=== PATIENT | male | born 1970 | race Caucasian/White ===

== ENCOUNTER 2018-07-08 01:20 | Outpatient (CLI) | payer OTHER, SELFPAY ==
--- NOTE | 2018-07-08 14:28 | DI.MRI_ITS ---
SYMPTOMS/DIAGNOSIS: CERVICAL RADICULOPATHY, M54.13, S/P LIFTING INJURY MRI OF THE CERVICAL SPINE: Routine examination was performed. Comparison is with x-rays from an outside institution. There is normal signal in the spinal cord. No evidence of tonsillar ectopia is seen. At C7-T1, there is no focal disc herniation, central spinal canal or neural foraminal stenosis. At C6-C7, there are mild hypertrophic changes of the facets. The findings do result in mild narrowing of the left neural foramen. No significant right neural foraminal stenosis or central spinal canal stenosis is seen. At C5-C6, there is a small to moderate-sized central disc herniation. It effaces the anterior subarachnoid space, but there is CSF surrounding the cord. No significant central spinal canal stenosis is seen. There are hypertrophic changes of the facets bilaterally, resulting in mild bilateral neural foraminal stenosis. At C4-C5, there are hypertrophic changes of the facets, resulting in mild to moderate left and mild right neural foraminal stenosis. There is prominence of the osteophyte-disc complex, resulting in mild narrowing of the central spinal canal. At C3-C4, there are hypertrophic changes of the left facet joints. There is mild narrowing of the left neural foramen. Mild prominence of the osteophyte- disc complex is seen, resulting in mild narrowing of the central spinal canal. C2-C3 shows no focal disc herniation, central spinal canal or neural foraminal stenosis. Marrow signal is within normal limits. IMPRESSION: 1. Multilevel degenerative changes in the cervical spine, resulting in multilevel central spinal canal and neural foraminal stenosis as described above. 2. Small to moderate-sized central disc herniation at C5-C6 as described above.
== END 2018-07-08 01:40 ==
PROVIDERS: Visit Provider Chiropractor
DX: M54.13 Radiculopathy, cervicothoracic region (principal); M50.222 Other cervical disc displacement at C5-C6 level; M50.121 Cervical disc disorder at C4-C5 level with radiculopathy
CPT/HCPCS: 72141

== ENCOUNTER 2018-08-20 16:23 | Outpatient (CLI) | payer OTHER, SELFPAY ==
[2018-08-20 16:47] LABS: HCT 45.5 % (40.0-50.0); HGB 15.4 g/dL (13.5-17.5); Mean Corp. HGB Concentration 33.8 g/dL (32.0-36.0); Mean Corpuscular Hemoglobin 31.7 pg (27.0-33.0); Mean Corpuscular Volume 93.6 fL (80-95); Mean Platelet Volume 9.9 fL (8.0-11.0); Platelet Count 366 x1000/uL (130-400); RBC 4.86 m/cumm (4.50-6.00); RBC Distribution Width 12.8 % (11.8-14.1); White Blood Cell Count 10.69 k/cumm (4.4-10.8)
[2018-08-20 17:42] LABS: Anion Gap 8.4 mmol/L (3-11); BUN 13 mg/dL (7-18); CO2 30.6 mmol/L (21.0-32.0); CREATININE 1.22 mg/dL (0.70-1.30); Calcium 9.5 mg/dL (8.5-10.1); Chloride 103 mmol/L (98-107); Glucose 92 mg/dL (70-100); Potassium 4.1 mmol/L (3.5-5.1); Sodium 142 mmol/L (136-145)
== END 2018-08-20 16:43 ==
PROVIDERS: Visit Provider Neurological Surgery
DX: Z01.812 Encounter for preprocedural laboratory examination (principal); R69 Illness, unspecified
CPT/HCPCS: 36415; 80048; 85027

== ENCOUNTER 2024-09-09 16:53 | Outpatient (CLI) | payer OTHER, SELFPAY ==
--- NOTE | 2024-09-09 15:40 | DI.RAD_ITS ---
Exam(s) XR CHEST 2V PA LATERAL EXAM: XR CHEST 2V PA LATERAL CLINICAL HISTORY: R05.9 cough TECHNIQUE: 2D digital imaging was performed of the chest. Two images were obtained. PA and lateral views were obtained. COMPARISON: CR LEFT RIBS TO INCLUDE CXR from 03/23/2014 FINDINGS: MEDIASTINUM: Normal. HEART: Normal. PULMONARY VASCULATURE: Normal. LUNGS: There is a right lower lobe infiltrate. The left lung is clear. PLEURAL SPACE: No pleural effusion or pneumothorax. BONE:Within normal limits for the patient's age. There are old healed left rib fractures. OTHER FINDINGS:Normal. IMPRESSION: Right lower lobe pneumonia. DATA REPOSITORY: RADIATION DOSE DELIVERED:
== END 2024-09-09 17:13 ==
LOC: DI 16:55
PROVIDERS: Visit Provider Nurse Practitioner Family
DX: J18.9 Pneumonia, unspecified organism (principal)
CPT/HCPCS: 71046

== ENCOUNTER 2024-09-23 15:05 | Outpatient (REF) | payer OTHER, SELFPAY ==
[2024-09-23 14:42] LABS: Abs Immature Grans 0.31 10^3/uL (0.0-0.06); Absolute Lymphocyte Count 0.97 10^3/uL (1.2-3.4); Basophils % 0.2 %; Eosinophils % 0.1 %; HCT 43.4 % (40.0-50.0); Immature Grans % 1.2 %; Lymphocytes % 3.8 %; MCH 30.2 pg (27.0-33.0); MCHC 32.3 % (32.0-36.0); MCV 94 fL (80-95); MPV 9.7 fL (8.0-11.0); Monocytes % 6.5 %; Platelet Count 509 10^3/uL (130-400); RBC 4.64 10^6/uL (4.36-5.78); RDW 12.4 % (11.8-14.1); RDW-SD 42.5 fL
[2024-09-23 14:55] LABS: ALT 68 U/L (16-63); AST 56 U/L (15-37); Albumin 2.7 g/dL (3.4-5.0); Alkaline Phosphatase 185 U/L (46-116); Anion Gap 12.3 mmol/L (3-11); BUN 8 mg/dL (7-18); Bilirubin, Total 0.79 mg/dL (0.2-1.0); CO2 26.7 mmol/L (21.0-32.0); CREATININE 0.9 mg/dL (0.70-1.30); Calcium 8.8 mg/dL (8.5-10.1); Chloride 96 mmol/L (98-107); Estimated GFR 100.86 (mL/min/1.73m2); Glucose 101 mg/dL (74-106); Potassium 4.4 mmol/L (3.5-5.1); Sodium 135 mmol/L (136-145); Total Protein 6.6 g/dL (6.4-8.2)
[2024-09-23 15:00] LABS: Absolute Basophil Count 0.05 10^3/uL (0.0-0.2); Absolute Eosinophil Count 0.03 10^3/uL (0.0-0.7); Absolute Monocyte Count 1.65 10^3/uL (0.1-0.8); Absolute Neutrophil Count 22.43 10^3/uL (1.2-6.7); Neutrophils % 88.2 %
[2024-09-23 15:09] LABS: WBC 25.43 10^3/uL (4.4-10.8)
[2024-09-23 15:55] LABS: COVID-19 PCR Negative (Negative); Influenza A PCR Negative (Negative); Influenza B PCR Negative (Negative); RSV PCR Negative (Negative)
[2024-09-23 15:56] LABS: Source Nasopharynx
== END 2024-09-23 15:06 | disposition home or self-care (01) ==
LOC: LBN 15:05
PROVIDERS: Visit Provider Nurse Practitioner Family
DX: R50.9 Fever, unspecified (principal)
CPT/HCPCS: 80053; 87637; 85025

== ENCOUNTER 2024-09-23 15:53 | Emergency (ER) | payer OTHER, SELFPAY ==
[2024-09-23 16:04] VITALS: BP 144/87; PULSE 112; RESP 20; TEMP 37; O2SAT 96
[2024-09-23 16:07] VITALS: BP 144/87; PULSE 112; RESP 20; TEMP 37; O2SAT 96
--- NOTE | 2024-09-23 16:15 | DI.RAD_ITS ---
Exam(s) XR CHEST 2V PA LATERAL EXAM: XR CHEST 2V PA LATERAL CLINICAL HISTORY: cough, WBC TECHNIQUE: 2D digital imaging was performed. Two views. COMPARISON: CR XR CHEST 2V PA LATERAL from 09/09/2024 FINDINGS: HEART: Normal size. Aorta: Not dilated. PULMONARY VASCULATURE: Normal. MEDIASTINUM: Unremarkable. LUNGS: Some interval worsening of the previously noted right lower lobe infiltrate, with increasing c onsolidation. The left lung remains clear. PLEURAL SPACE: No pleural effusion or pneumothorax. BONE:Unremarkable for age. SOFT TISSUES: Unremarkable. IMPRESSION: Are right lower lobe pneumonia. DATA REPOSITORY: RADIATION DOSE DELIVERED:
[2024-09-23 17:17] LABS: Lactate 1.3 mmol/L (<or=2.0)
[2024-09-23 17:25] LABS: BE (Venous) 2 mmol/L (-2-3); HCO3 (Venous) 26 mmol/L (23-28); O2 Sat (Venous) 71 %; TCO2 (Venous) 23 mmol/L (24-29); pCO2 (Venous) 38 mmHg (41-51); pH (Venous) 7.45 (7.31-7.41); pO2 (Venous) 36 mmHg
--- NOTE | 2024-09-23 17:30 | ED.GENADUL_ITS ---
Discharge Plan Disposition Patient Disposition: Home Condition: Good Discharge Details Clinical Impression: Community acquired pneumonia Primary Care Provider: Unknown,Unknown ED Provider: Jessica Post Home Meds and New Rx's Prescriptions: New levofloxacin 750 mg tablet 750 mg PO DAILY Qty: 4 0RF No Action ibuprofen 800 mg tablet 800 mg PO TID PRN (Reason: pain) Qty: 42 0RF cyclobenzaprine 10 mg tablet 10 mg PO HS PRN (Reason: muscle spasm) Qty: 10 0RF Discharge Instructions Instructions: Levofloxacin (Systemic), Community-Acquired Pneumonia, Adult (DC) Additional Instructions: Please get reevaluated at walk-in primary care such as [facility] in [place] ([address]) or [facility] ([address]) by the end of the week. Make an appointment to establish care with primary care as discussed. Take the prescription for the full course as provided. Please note that this may have complications such as tendon rupture or nerve problems, so please seek care immediately if you notice any joint weakness, unusual muscle pains, numbness. Stay well-hydrated, drinking plenty of fluids throughout the day. You may use Tylenol 650 mg every 6 hours or ibuprofen 600 mg every 8 hours as needed for fever/chills and generalized discomfort. You may use Mucinex DM or Robitussin DM as needed for cough. Take according to package instructions. Vicks VapoRub may also provide some comfort. Return to emergency care if you develop new chest pains, difficulty breathing, fevers after 48 hours of treatment, if symptoms are worsening rather than getting better, or if you are very worried and need to be rechecked again immediately HPI General Date/Time Provider Initiated Documentation: 09/23/24 15:56 . HPI Narrative: Bandar is a 54 year old male who presents to the emergency department today for evaluation of worsening cough with low-grade fever, body aches, sore throat, and congestion. He reports that he has been sick all winter, but was treated for pneumonia 2 weeks ago. He initially felt better after taking antibiotics, but a couple of days ago he started feeling unwell again; his energy plummeted and his appetite decreased, and he started developing fevers. He denies chest pains or shortness of breath other than when he is coughing. He was advised to present to the emergency department for further evaluation and treatment. Denies tobacco or alcohol use. Denies significant past medical history. Physical exam remarkable for frequent cough, lung sounds diminished throughout. Normal heart sounds, tachycardia noted. Patient alert and oriented, no acute distress. Skin is slightly hot and dry. D/dx includes but is not limited to: Treatment resistant pneumonia, viral illness, obstructive process such as neoplasm, dehydration, electrolyte imbalance. Patient does not meet SIRS criteria at this time. I independently interpreted the following tests: CBC notable for leukocytosis, white cell count 25.4. Thrombocytosis with platelet count 509 also noted. CMP and VBG reassuring, procalcitonin negative. Lactate 1.3. Chest x-ray remarkable for right lower lobe infiltrate, this was remarked by radiologist to be increased since previous. History and presentation today consistent with treatment resistant pneumonia. While in the emergency department, Bandar received IV fluids for mild dehydration and Tylenol for fever/body aches, with resolution of tachycardia. He was able to take p.o. lukas domingo without difficulty. Levaquin given for antibiotic, as patient has failed Augmentin and azithromycin outpatient. Reviewed discharge instructions with patient, including symptomatic management, importance of close follow-up for reassessment, and red flags indicating need for return to emergency care. He voices agreement with plan of care. Related Data Home Medications ?Medication ?Instructions ?Recorded ?Confirmed ibuprofen 800 mg tablet 800 mg PO TID PRN pain #42 tabs 04/11/18 09/23/24 cyclobenzaprine 10 mg tablet 10 mg PO HS PRN muscle spasm #10 04/14/24 09/23/24 tabs levofloxacin 750 mg tablet 750 mg PO DAILY #4 tabs 09/23/24 Previous Rx's ?Medication ?Instructions ?Recorded ibuprofen 800 mg tablet 800 mg PO TID PRN pain #42 tabs 04/11/18 cyclobenzaprine 10 mg tablet 10 mg PO HS PRN muscle spasm #10 04/14/24 tabs levofloxacin 750 mg tablet 750 mg PO DAILY #4 tabs 09/23/24 Allergies Allergy/AdvReac Type Severity Reaction Status Date / Time No Known Allergies Allergy Unverified 09/23/24 16:08 General Stated Complaint: RespSymp ERON: 3 Review of Systems Narrative: See HPI Exam Const General: cooperative, healthy appearing, comfortable, no acute distress, well developed and well groomed Nutritional Appearance: average body habitus Orientation: alert and oriented x3 Resp Effort & Inspection: normal respiratory effort and able to speak in complete sentences Auscultation: clear to auscultation bilaterally and diminished lung sounds Cardio Rate: tachycardic Rhythm: regular rhythm Pulses: radial pulses present Skin General skin exam: no rashes or lesions noted Trauma: no lacerations or abrasions Course Vital Signs Vital signs: Vital Signs Temperature 37.0 C 09/23/24 16:04 Pulse 112 H 09/23/24 16:04 Respiratory Rate 20 09/23/24 16:04 Blood Pressure 144/87 H 09/23/24 16:04 Pulse Oximetry 96 09/23/24 16:04 Temperature 37.0 C 09/23/24 16:07 Pulse 112 H 09/23/24 16:07 Respiratory Rate 20 09/23/24 16:07 Respiratory Effort Normal 09/23/24 17:09 Respiratory Depth Normal 09/23/24 17:09 Blood Pressure 144/87 H 09/23/24 16:07 Blood Pressure Position Sitting 09/23/24 16:07 Pulse Oximetry 96 09/23/24 16:07 Oxygen Delivery Method Room Air 09/23/24 16:07 Oxygen Flow Rate 0 09/23/24 16:07 Lab/Test Results Lab/Test Results: 09/23/24 16:21 Blood Blood Culture - Pending 09/23/24 16:21 Blood Blood Culture - Pending Laboratory Tests Range/Units 09/23/24 17:05 VBG pH (7.31-7.41) 7.45 H VBG pCO2 (41-51) mmHg 38 L VBG pO2 mmHg 36 VBG HCO3 (23-28) mmol/L 26 VBG Total CO2 (24-29) mmol/L 23 L VBG O2 Saturation % 71 VBG Base Excess (-2-3) mmol/L 2 VBG Lactate (<or=2.0) mmol/L 1.3 Medical Decision Making Imaging Data Radiologic Study: Radiologist's impression: Exam(s) XR CHEST 2V PA LATERAL EXAM: XR CHEST 2V PA LATERAL CLINICAL HISTORY: cough, WBC TECHNIQUE: 2D digital imaging was performed. Two views. COMPARISON: CR XR CHEST 2V PA LATERAL from 09/09/2024 FINDINGS: HEART: Normal size. Aorta: Not dilated. PULMONARY VASCULATURE: Normal. MEDIASTINUM: Unremarkable. LUNGS: Some interval worsening of the previously noted right lower lobe infilt rate, with increasing consolidation. The left lung remains clear. PLEURAL SPACE: No pleural effusion or pneumothorax. BONE:Unremarkable for age. SOFT TISSUES: Unremarkable. IMPRESSION: Are right lower lobe pneumonia. Quality:SDOH Health Related Social Needs: No Data to Display PFSH All Active Problems (Updated 09/23/24 @ 19:33 by Jessica Mello) Community acquired pneumonia (Acute) Cervical strain (Acute ~02/2018) Begin PT which has been scheduled for Sunday at 7:45 AM Ibuprofen to be limited to no more than 800 mg tid prn. Add Flexeril 5-10 mg at HS prn. Use heat. Work restrictions per work status form. Medical History (Updated 09/23/24 @ 19:33 by Jessica Mello) Fracture, jaw 23 years ago Neck pain Social History Smoking/Tobacco Use Status: Current every day Tobacco Type: cigarettes Smoking packs per day: 1 Smoking cigarettes per day: 20.0 Smoking risk assessment performed?: Yes Alcohol Intake: current Alcohol Intake frequency: 0-2 drinks per day Alcohol type: beer Drug use: Never Household members: significant other and children Number of Children: 1 current occupation: metal fabriacation, manufacturing Do you feel safe in your relationship?: Yes
[2024-09-23 17:44] LABS: Procalcitonin 0.16 ng/mL
[2024-09-23] MEDS: Acetaminophen 325 MG TAB 650 MG PO (17:46)
[2024-09-23 17:51] LABS: COVID-19 PCR Negative (Negative); Influenza A PCR Negative (Negative); Influenza B PCR Negative (Negative); RSV PCR Negative (Negative)
[2024-09-23 17:52] LABS: Source Nasopharynx
--- NOTE | 2024-09-23 18:15 | RT.EKG_ITS ---
APPROVED REPORT Exam: Resting ECG Reason for Exam: karen QT Patient Location: E HR:114 bpm ECG Measurements Heart Rate 114 AXIS SD 138 P 55 QRSd 85 QRS 65 QT 304 T 29 QTc 418 Conclusion Sinus tachycardia...rate> 99
[2024-09-23 18:17] VITALS: PULSE 138; RESP 20; O2SAT 96
[2024-09-23] MEDS: levoFLOXacin 500 MG, levoFLOXacin 250 MG 750 MG PO (18:47)
[2024-09-23] MEDS: Normal Saline 1,000 ML 1000 ML IV (18:48)
[2024-09-23 19:40] VITALS: BP 109/69; PULSE 94; RESP 18; O2SAT 98
[2024-09-23 19:51] VITALS: BP 109/69; PULSE 94; RESP 18; O2SAT 98
[2024-09-23 22:00] LABS: Lab Add On Test DONE
== END 2024-09-23 19:59 | disposition home or self-care (01) ==
PROVIDERS: Emergency Provider Nurse Practitioner Family
DX: J18.9 Pneumonia, unspecified organism (principal)
CPT/HCPCS: 82805; 84145; 87040; 87637; 93005; 96360; 99284; 71046; 83605; 93010; 99283

== ENCOUNTER 2024-10-17 10:02 | Outpatient (CLI) | payer OTHER, SELFPAY ==
[2024-10-17 10:24] LABS: ALT 81 U/L (16-63); AST 40 U/L (15-37); Albumin 2.3 g/dL (3.4-5.0); Alkaline Phosphatase 133 U/L (46-116); Anion Gap 7.9 mmol/L (3-11); BUN 7 mg/dL (7-18); Bilirubin, Total 0.4 mg/dL (0.2-1.0); CO2 29.1 mmol/L (21.0-32.0); CREATININE 0.8 mg/dL (0.70-1.30); Calcium 9.1 mg/dL (8.5-10.1); Chloride 103 mmol/L (98-107); Estimated GFR 104.51 (mL/min/1.73m2); Glucose 107 mg/dL (74-106); Potassium 4.3 mmol/L (3.5-5.1); Sodium 140 mmol/L (136-145); Total Protein 7.2 g/dL (6.4-8.2)
== END 2024-10-17 10:03 | disposition home or self-care (01) ==
LOC: LBO 10:02
PROVIDERS: PCP Family Medicine; Visit Provider Family Medicine
DX: R74.01 Elevation of levels of liver transaminase levels (principal)
CPT/HCPCS: 36415; 80053

== ENCOUNTER 2024-10-28 16:36 | Outpatient (CLI) | payer OTHER, SELFPAY ==
[2024-10-28 17:07] LABS: HCT 39.3 % (40.0-50.0); HGB 12.2 g/dL (13.5-17.5); MCH 27.4 pg (27.0-33.0); MCV 88 fL (80-95); MPV 8.9 fL (8.0-11.0); RBC 4.46 10^6/uL (4.36-5.78); RDW 13.8 % (11.8-14.1); RDW-SD 44.7 fL
[2024-10-28 17:32] LABS: Absolute Eosinophil Count 0.28 10^3/uL (0.0-0.7); Absolute Lymphocyte Count 2.79 10^3/uL (1.2-3.4); Absolute Monocyte Count 1.68 10^3/uL (0.1-0.8); Atypical Lymphocytes % 2 %; Bands % 2 %
[2024-10-28 17:36] LABS: WBC 27.94 10^3/uL (4.4-10.8)
[2024-10-28 17:37] LABS: Diff Comment Manual Differential; Myelocytes % 1; Platelet Count 808 10^3/uL (130-400); RBC Morphology Normal
[2024-10-28 17:38] LABS: Absolute Neutrophil Count 22.91 10^3/uL (1.2-6.7)
[2024-10-28 20:48] LABS: FREE T4 0.95 ng/dL (0.76-1.46); GGT 192 U/L (15-85); TSH 1.33 uIU/mL (0.36-3.74)
[2024-10-29 17:51] LABS: T3, Total 140 ng/dL (97-169)
[2024-10-29 19:03] LABS: PSA, Screening 1.2 ng/mL (<=3.5)
[2024-10-30 11:27] LABS: HIV-1/2 Ag & Ab Screen Negative (Negative)
[2024-10-30 11:29] LABS: Hep A Total Ab w Rflx IgM Negative (Negative)
[2024-10-30 11:43] LABS: Hepatitis A Antibody IgM Negative (Negative); Hepatitis B Core Antibody Negative (Negative); Hepatitis B surface Ag Negative (Negative); Hepatitis C Ab w Rflx HCV PCR Negative (Negative)
[2024-10-30 11:52] LABS: TB Interpretation Negative (Negative); TB1 Ag minus Nil 0.01 IU/mL
[2024-11-01 13:08] LABS: Anaplasma phagocytophilum Negative (Negative); B. miyamotoi PCR Negative (Negative); Babesia divergens/MO-1 Negative (Negative); Babesia duncani Negative (Negative); Babesia microti Negative (Negative); Ehrlichia chaffeensis Negative (Negative); Ehrlichia ewingii/canis Negative (Negative); Ehrlichia muris eauclairensis Negative (Negative)
== END 2024-10-28 16:37 | disposition home or self-care (01) ==
LOC: LBO 16:38
PROVIDERS: PCP Family Medicine; Visit Provider Family Medicine
DX: R63.4 Abnormal weight loss (principal); D72.829 Elevated white blood cell count, unspecified; R74.01 Elevation of levels of liver transaminase levels; E88.09 Other disorders of plasma-protein metabolism, not elsewhere classified
CPT/HCPCS: 84153; 86704; 86709; 86803; 87340; 87389; 87798; 82977; 84439; 84443; 84480; 85025; 86480

== ENCOUNTER 2024-10-30 14:43 | Outpatient (CLI) | payer OTHER, SELFPAY | END 2024-10-30 14:44 | disposition home or self-care (01) | LOC: LBO 14:44 | PROVIDERS: PCP Family Medicine; Visit Provider Family Medicine | DX: D72.829 Elevated white blood cell count, unspecified (principal) | CPT/HCPCS: 36415; 87040 ==

== ENCOUNTER 2024-10-30 15:04 | Outpatient (REF) | payer OTHER, SELFPAY | END 2024-10-30 15:05 | disposition home or self-care (01) | LOC: NCHCN 15:04 | PROVIDERS: PCP Family Medicine; Visit Provider Family Medicine | DX: D72.829 Elevated white blood cell count, unspecified (principal) | CPT/HCPCS: 87086 ==